=== PATIENT | male | born 1980 | race African-American/Black ===

== ENCOUNTER 2020-09-28 06:07 | Emergency (ER) | payer OTHER ==
[~2020-09-28] VITALS: Ht 167.6 cm; Wt 63.5 kg
[2020-09-28] MEDS ORDERED: DILANTIN100 MG PO (06:12)
[2020-09-28] MEDS ORDERED: CIPROFLOXACIN500 M1 PO (07:59)
[2020-09-28 08:13] VITALS: BP 115/75
== END 2020-09-28 08:12 | disposition home or self-care (01) ==
LOC: ER 06:07
DX: S91.332A Puncture wound without foreign body, left foot, initial encounter (principal); W22.8XXA Striking against or struck by other objects, initial encounter; Y93.89 Activity, other specified; Y92.89 Other specified places as the place of occurrence of the external cause; Y99.8 Other external cause status